=== PATIENT | male | born 1980 | race African-American/Black ===

== ENCOUNTER 2017-11-23 20:13 | Emergency (ER) | payer SELFPAY ==
[2017-11-23] MEDS ORDERED: NORMAL SALINE 1000 ML 1,000 ML IV ONE (20:33)
--- NOTE | 2017-11-23 20:35 | ER Document Report ---
ED Medical Screen (RME) - General Chief Complaint: Pain All Over Stated Complaint: CRAMPING Time Seen by Provider: 11/23/17 20:26 Notes: RAPID MEDICAL EVALUATION DISCLOSURE I have seen this patient as part of a Rapid Medical Evaluation and, if applicable, placed any initially appropriate orders. The patient will be seen and fully evaluated, including a full history and physical exam, by a provider ( in Main ED or Fast Track) when a room becomes available. 36-year-old male here with complaints of nausea generalized weakness and body cramps ongoing for the past 2-3 days. 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 He is tried to stay hydrated with water bottles however today he felt really bad. He has been taking magnesium and potassium pills as well as B12 over the past few days to stay ahead of the game. EXAM CTAB RRR TRAVEL OUTSIDE OF THE [place] IN LAST 30 DAYS: No - Related Data Allergies/Adverse Reactions: No Known Allergies Allergy (Unverified 11/23/17 20:19) Past Medical History - Social History Chew tobacco use (# tins/day): No Frequency of alcohol use: None Drug Abuse: None - Past Medical History Cardiac Medical History: Reports: Hx Hypertension Renal/ Medical History: Denies: Hx Peritoneal Dialysis Past Surgical History: Reports: Hx Abdominal Surgery - hernia repair, Hx Genitourinary Surgery - hypospadias Physical Exam - Vital signs Vitals: Temp Pulse Resp BP Pulse Ox 97.9 F 88 20 141/91 H 97 11/23/17 20:11/23/17 20:11/23/17 20:11/23/17 20:29 11/23/17 20:29 Course - Vital Signs Vital signs: Temp Pulse Resp BP Pulse Ox 97.9 F 88 20 141/91 H 97 11/23/17 20:29 11/23/17 20:29 11/23/17 20:29 11/23/17 20:29 11/23/17 20:29
[2017-11-23 21:32] LABS: ABSOLUTE EOSINOPHILS # (AUTO) 0.2 10^3/uL (0.0-0.6); ABSOLUTE LYMPHOCYTES (AUTO) 1.7 10^3/uL (0.5-4.7); ABSOLUTE MONOCYTES (AUTO) 0.8 10^3/uL (0.1-1.4); ABSOLUTE NEUT (AUTO) 3.4 10^3/uL (1.7-8.2); BASOPHILS % (AUTO) 0.5 % (0-2); HEMATOCRIT 38.5 % (37.9-51.0); HEMOGLOBIN 13.1 g/dL (13.5-17.0); LYMPHOCYTES % (AUTO) 27.9 % (13-45); MEAN CORPUSCULAR HEMOGLOBIN 28.4 pg (27.0-33.4); MEAN CORPUSCULAR VOLUME 84 fl (80-97); MONOCYTES % (AUTO) 12.5 % (3-13); PLATELET COUNT 309 10^3/uL (150-450); RED CELL DISTRIBUTION WIDTH 12.7 % (11.5-14.0); SEGMENTED NEUTROPHILS % (AUTO) 56.1 % (42-78); TOTAL CELLS COUNTED % (AUTO) 100 %; WHITE BLOOD COUNT 6.1 10^3/uL (4.0-10.5)
[2017-11-23 21:47] LABS: ALANINE AMINOTRANSFERASE 40 U/L (21-72); ALBUMIN 4.9 g/dL (3.5-5.0); ALKALINE PHOSPHATASE 94 U/L (38-126); ANION GAP 14 (5-19); ASPARTATE AMINO TRANSFERASE 33 U/L (17-59); BILIRUBIN,DIRECT 0.3 mg/dL (0.0-0.4); BILIRUBIN,TOTAL 0.9 mg/dL (0.2-1.3); BLOOD UREA NITROGEN 19 mg/dL (7-20); CALCIUM 9.9 mg/dL (8.4-10.2); CARBON DIOXIDE 26 mmol/L (22-30); CHLORIDE 99 mmol/L (98-107); CREATINE KINASE 504 U/L (55-170); GLUCOSE 142 mg/dL (75-110); PHOSPHORUS 4.7 mg/dL (2.5-4.5); POTASSIUM 4.7 mmol/L (3.6-5.0); SODIUM 138.7 mmol/L (137-145); TOTAL PROTEIN 8.1 g/dL (6.3-8.2)
--- NOTE | 2017-11-23 22:57 | ER Document Report ---
ED General - General Chief Complaint: Pain All Over Stated Complaint: CRAMPING Time Seen by Provider: 11/23/17 20:26 Notes: The patient is a 36-year-old male who presents with generalized weakness and body cramps of the past 3 days. He has been working in the heat laying solar panels and his symptoms have progressively worsened. He is drinking water and taking magnesium, potassium and B12 pills to help his cramping. On my evaluation, patient is not having any cramping or any other symptoms. He denies chest pain, shortness of breath, back pain, fevers, syncope, decreased urination or headache. TRAVEL OUTSIDE OF THE [place] IN LAST 30 DAYS: No - Related Data Allergies/Adverse Reactions: No Known Allergies Allergy (Unverified 11/23/17 20:19) Past Medical History - General Information source: Patient - Social History Smoking Status: Never Smoker Chew tobacco use (# tins/day): No Frequency of alcohol use: None Drug Abuse: None Family History: Reviewed & Not Pertinent Patient has suicidal ideation: No Patient has homicidal ideation: No - Past Medical History Cardiac Medical History: Reports: Hx Hypertension Renal/ Medical History: Denies: Hx Peritoneal Dialysis Past Surgical History: Reports: Hx Abdominal Surgery - hernia repair, Hx Genitourinary Surgery - hypospadias Review of Systems - Review of Systems Notes: REVIEW OF SYSTEMS: CONSTITUTIONAL: -fevers, -chills EENT: -eye pain, -difficulty swallowing, -nasal congestion CARDIOVASCULAR: -chest pain, -syncope. RESPIRATORY: -cough, -SOB GASTROINTESTINAL: -abdominal pain, -nausea, -vomiting, -diarrhea GENITOURINARY: -dysuria, -hematuria MUSCULOSKELETAL: -back pain, -neck pain, +myalgias SKIN: -rash or skin lesions. HEMATOLOGIC: -easy bruising or bleeding. LYMPHATIC: -swollen, enlarged glands. NEUROLOGICAL: -altered mental status or loss of consciousness, -headache, - neurologic symptoms PSYCHIATRIC: -anxiety, -depression. ALL OTHER SYSTEMS REVIEWED AND NEGATIVE. Physical Exam - Vital signs Vitals: Temp Pulse Resp BP Pulse Ox 97.9 F 88 20 141/91 H 97 11/23/17 20:29 11/23/17 20:29 11/23/17 20:29 11/23/17 20:29 11/23/17 20:29 - Notes Notes: PHYSICAL EXAMINATION: GENERAL: Well-appearing, well-nourished and in no acute distress. HEAD: Atraumatic, normocephalic. EYES: Pupils equal round and reactive to light, extraocular movements intact, sclera anicteric, conjunctiva are normal. ENT: nares patent, oropharynx clear without exudates. Moist mucous membranes. NECK: Normal range of motion, supple without lymphadenopathy LUNGS: Breath sounds clear to auscultation bilaterally and equal. No wheezes rales or rhonchi. HEART: Regular rate and rhythm without murmurs ABDOMEN: Soft, nontender, normoactive bowel sounds. No guarding, no rebound. No masses appreciated. EXTREMITIES: Normal range of motion, no pitting or edema. No cyanosis. NEUROLOGICAL: Cranial nerves grossly intact. Normal speech, normal gait. Normal sensory and motor exams. PSYCH: Normal mood, normal affect. SKIN: Warm, Dry, normal turgor, no rashes or lesions noted. Course - Re-evaluation Re-evalutation: Patient appears well and is having no symptoms upon my evaluation. He does have mild rhabdomyolysis with a CPK of 600 and slightly elevated creatinine (no prior values to compare to). Provide him with IV fluids and instructions to stay hydrated. Given strict return precautions and he understands. - Vital Signs Vital signs: Temp Pulse Resp BP Pulse Ox 97.9 F 88 20 141/91 H 97 11/23/17 20:29 11/23/17 20:29 11/23/17 20:29 11/23/17 20:29 11/23/17 20:29 - Laboratory Result Diagrams: 11/23/17 21:00 11/23/17 21:00 Laboratory results interpreted by me: 11/23/17 11/23/17 21:00 21:00 Hgb 13.1 L Creatinine 1.33 H Glucose 142 H Phosphorus 4.7 H Creatine Kinase 504 H Discharge - Discharge Clinical Impression: Rhabdomyolysis Qualifiers: Rhabdomyolysis type: traumatic Encounter type: initial encounter Qualified Code (s): T79.6XXA - Traumatic ischemia of muscle, initial encounter Condition: Stable Disposition: HOME, SELF-CARE Additional Instructions: Drink plenty of water and electrolyte-containing fluids, including Gatorade or Powerade. Have your kidney function rechecked by your primary care physician this week. Myalagia (Muscle Pain) Myalgia is pain in the muscles. We use the word myalgia to describe muscle pain where there's no history of injury, no known muscle disease, and the muscles are normal to examination. Myalgias can be a symptom of an acute illness , such as influenza, hepatitis, or any viral illness, especially with fever. Sometimes the muscle pain comes before any other symptoms. Myalgia can also be an early symptom of inflammatory muscle disease, such as lupus. If myalgia is accompanied by an acute illness that explains the muscle pain , then no further testing needs to be done. When there's no clear reason for the pain, tests may be done to see if there's an inflammatory or other disease of the muscles. The usual treatment for myalgias is anti-inflammatory medication, such as ibuprofen, and fluids. Muscle aches may be soothed with a heating pad or hot compress. If muscles remain painful for more than a few days, you'll need testing and followup. Return if a muscle becomes swollen, red, or severely painful. Forms: Elevated Blood Pressure Referrals: [facility] [Outside] - Follow up as needed
[2017-11-23 23:44] VITALS: BP 131/80
[2017-11-23 23:44] LABS: APPEARANCE,URINE CLEAR; BILIRUBIN,URINE NEGATIVE (NEGATIVE); COLOR,URINE STRAW; GLUCOSE, URINE NEGATIVE (NEGATIVE); KETONES,URINE NEGATIVE (NEGATIVE); LEUKOCYTE ESTERASE,URINE NEGATIVE (NEGATIVE); NITRITE,URINE NEGATIVE (NEGATIVE); PROTEIN,URINE NEGATIVE (NEGATIVE); URINE SPECIFIC GRAVITY 1.006; UROBILINOGEN,URINE NEGATIVE mg/dL (<2.0)
== END 2017-11-23 23:38 | disposition home or self-care (01) ==
LOC: ER 20:13
DX: T79.6XXA Traumatic ischemia of muscle, initial encounter (principal); M79.1 Myalgia; R53.1 Weakness; I10 Essential (primary) hypertension; X58.XXXA Exposure to other specified factors, initial encounter
CPT/HCPCS: 99283; 96360; 36415; 82550; 83735; 84100; 85025; 80053; 81001; J7030